=== PATIENT | male | born 1970 | race Caucasian/White ===

== ENCOUNTER 2023-10-03 18:44 | Emergency (ER) | payer BC ==
[~2023-10-03] VITALS: Ht 185.4 cm; Wt 104.3 kg
[2023-10-03 20:57] LABS: PH,URINE 5.5 (5.0-8.0); URINE APPEARANCE Clear; URINE BILIRRUBIN Negative (NEGATIVE); URINE BLOOD Large; URINE COLOR Yellow; URINE LEUKOCYTE Negative; URINE NITRATE Negative; URINE PROTEIN Negative (NEGATIVE)
[2023-10-03 20:57] LABS: HEMATOCRIT 48.6 % (39.0-48.0); HEMOGLOBIN 16.9 g/dL (13-16.00); MEAN CELL VOLUME 90.8 fL (80.0-100.00); MEAN CORPUSCULAR HEMOGLOBIN 31.6 pg (27.00-32.0); MEAN CORPUSCULAR HGB CONC 34.8 g/dl (32.0-36.0); PLATELET COUNT 203 K/uL (150-450); RED BLOOD COUNT 5.35 M/uL (4.00-6.00); RED CELL DISTRIBUTION WIDTH 13.4 % (11.5-14.5)
[2023-10-03 21:01] LABS: URINE BACTERIA 22.6 uL (0.0-1933); URINE RBC 88.5 uL (0.0-20.8); URINE WBC 4.9 uL (0.0-23.2)
[2023-10-03 21:02] LABS: URINE GLUCOSE 250 MG/DL (NEGATIVE)
[2023-10-03 21:33] LABS: ALBUMIN 4.1 gm/dL (3.4-5.0); BILIRUBIN TOTAL 0.54 mg/dL (0.3-1.2); CALCIUM 9.2 mg/dL (8.5-10.1); CREATININE SERUM 1.26 mg/dL (0.70-1.30); GFR 59.42; GLOBULINA 3.4 G/DL (2.4-3.5); POTASSIUM 3.7 mEq/L (3.5-5.1); TOTAL PROTEIN 7.5 gm/dL (6.4-8.2)
[2023-10-03] MEDS ORDERED: CIPRO500 MG PO (22:25)
[2023-10-03] MEDS ORDERED: KETO10TA2 PO (22:25)
== END 2023-10-03 22:48 | disposition home or self-care (01) ==
LOC: ER 18:45
PROVIDERS: General Practice
DX: N20.1 Calculus of ureter (principal); R10.9 Unspecified abdominal pain; K80.20 Calculus of gallbladder without cholecystitis without obstruction; K57.30 Diverticulosis of large intestine without perforation or abscess without bleeding